=== PATIENT | female | born 1975 | race Caucasian/White ===

== ENCOUNTER → 2020-12-11 | Outpatient (CLI) | payer MEDICAID ==
--- NOTE | 2020-12-11 13:44 | Diagnostic Imaging Report ---
INDICATION: Pain COMPARISON: None. FINDINGS: Full radiographic views of the 3rd and 4th digits of the right hand were obtained and show no fractures, dislocations, or other acute bony abnormalities. Joint spaces are well maintained throughout. The soft tissues appear unremarkable. No radiopaque foreign bodies are identified. IMPRESSION: Unremarkable radiographic exam of the 3rd and 4th digits of the right hand.. Dictated by: Dictated on workstation # [id number]
== END ==
LOC: RAD FS 13:22
PROVIDERS: ATTEND Nurse Practitioner
DX: M79.644 Pain in right finger(s) (principal)
CPT/HCPCS: 73140